=== PATIENT | female | born 1995 | race American Indian/Alaskan Native ===

== ENCOUNTER 2021-09-24 19:08 | Emergency (ER) | payer OTHER ==
--- NOTE | 2021-09-25 05:32 | Emergency Department Report ---
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 While lifting and pushing patient she felt a pulling type pain across the back. She reports no fevers, chills, sweats. No nausea vomiting no hematuria no dysuria. She reports no loss of bowel bladder, no saddle paresthesia, no numbness or tingling down her legs. She reports no fall no blunt trauma to the back. No pre-existing back injuries to her knowledge MD Complaint: back pain ([place] experiencing some bilateral aches to the kidney area in the back prior to lifting the patient and experiencing back pain and was suspicious of possibly developing a kidney infection and wanted to be checked. Although she reports no dysuria no hematuria polyuria) -: Sudden Place: work Radiation: none Quality: dull, aching Consistency: constant Improves With: none Worsens With: none Context: while lifting Associated Symptoms: difficulty walking. denies: fever/chills, constipation, abdominal pain, loss of appetite, seizure, shortness of breath - Related Data Previous Rx's Medication Instructions Recorded Last Taken Type Ketorolac [Toradol] 10 mg PO Q6H PRN #20 09/25/21 Unknown Rx methOCARBAMOL [Robaxin TAB] 750 mg PO Q8H #20 09/25/21 Unknown Rx ED Review of Systems ROS: Stated complaint: SPINAL INJURY/KIDNEY PAIN Other details as noted in HPI Comment: All other systems reviewed and negative ED Past Medical Hx - Medications Home Medications: Home Medications Medication Instructions Recorded Confirmed Last Taken Type Ketorolac [Toradol] 10 mg PO Q6H PRN #20 09/25/21 Unknown Rx methOCARBAMOL [Robaxin TAB] 750 mg PO Q8H #09/25/21 Unknown Rx ED Physical Exam - General Limitations: No Limitations General appearance: alert, in no apparent distress - Head Head exam: Present: atraumatic, normocephalic - Eye Eye exam: Present: normal appearance. Absent: PERRL, EOMI Pupils: Present: normal accommodation - ENT ENT exam: Present: normal exam, mucous membranes moist, TM's normal bilaterally - Neck Neck exam: Present: normal inspection, full ROM. Absent: tenderness, lymphadenopathy - Respiratory Respiratory exam: Present: normal lung sounds bilaterally. Absent: respiratory distress, wheezes, rales, chest wall tenderness, accessory muscle use - Cardiovascular Cardiovascular Exam: Present: regular rate, normal rhythm. Absent: systolic murmur, diastolic murmur, rubs, gallop - GI/Abdominal GI/Abdominal exam: Present: soft, normal bowel sounds - Extremities Exam Extremities exam: Present: normal inspection - Back Exam Back exam: Present: normal inspection, tenderness, muscle spasm, paraspinal tenderness. Absent: CVA tenderness (R), CVA tenderness (L) - Neurological Exam Neurological exam: Present: alert, oriented X3, CN II-XII intact - Psychiatric Psychiatric exam: Present: normal affect, normal mood - Skin Skin exam: Present: warm, dry, intact, normal color. Absent: rash ED Course Vital Signs 09/24/21 19:46 Temperature 98.5 F Pulse Rate 87 Respiratory 18 Rate Blood Pressure 125/83 [Left] O2 Sat by Pulse 99 Oximetry ED Medical Decision Making - Medical Decision Making Pt presents the emergency department complaining of back pain most consistent with nonemergent back Pain Most Consistent with Strain/Contusion. Differential Diagnosis Includes Lumbar Go Versus Musculoskeletal Spasm, Strain Versus Sciatica. No Back Pain Red Flags on History or Physical. Presentation Not Consistent with Malignancy, Fracture, Cauda Equina, Abdominal Aortic Aneurysm, Viscus Perforation, Pulmonary Embolism, Renal Colic, Pyelonephritis. Patient reports no B symptoms, trauma trauma, incontinence, saddle anesthesia, distal weakness, urinary symptoms and is a febrile. Critical care attestation.: If time is entered above; I have spent that time in minutes in the direct care of this critically ill patient, excluding procedure time. ED Disposition Clinical Impression: Lumbago Disposition: 01 HOME / SELF CARE / HOMELESS Is pt being admited?: No Does the pt Need Aspirin: No Condition: Stable Instructions: Back Exercises, Hler-vr-[id number], Preventing Back Pain for New Parents Prescriptions: methOCARBAMOL [Robaxin TAB] 750 mg PO Q8H #20 Ketorolac [Toradol] 10 mg PO Q6H PRN #20 PRN Reason: Pain Referrals: PRIMARY CARE [Primary Care Provider] - 3-5 Days [facility], [facility] [Provider Group] - 3-5 Days [facility] [Provider Group] - 3-5 Days
[2021-09-25 07:07] LABS: Bacteria,Urine 1+ /HPF (Negative); WBC,Urine < 1.0 /HPF (0.0-6.0)
[2021-09-25 07:08] LABS: Bilirubin,Urine NEG (Negative); Blood,Urine MOD (Negative); Color,Urine Straw (Yellow); Protein,Urine <15 mg/dL mg/dL (Negative); Urobilinogen,Urine < 2.0 mg/dL (<2.0)
[2021-09-25 07:25] VITALS: BP 128/84
== END 2021-09-25 07:25 | disposition home or self-care (01) ==
LOC: ED 19:08
DX: M54.50 Low back pain, unspecified (principal)
CPT/HCPCS: 81001; 99283